=== PATIENT | male | born 1965 | race Caucasian/White ===

== ENCOUNTER 2019-12-04 11:38 | Emergency (ER) | payer MEDICAID ==
[~2019-12-04] VITALS: Ht 175.3 cm; Wt 65.0 kg
[~2019-12-04 11:38] MED LIST: HIV MEDS
[2019-12-04] MEDS ORDERED: IBUPROFEN 600MG TABLET PO STA (14:24)
[2019-12-04 14:39] VITALS: BP 126/74
[2019-12-04 15:16] LABS: CLARITY URINE CLEAR (CLEAR); COLOR URINE YELLOW (YELLOW); KETONES URINE NEGATIVE (NEGATIVE); LEUKOCYTE ESTERASE URINE NEGATIVE (NEGATIVE); NITRITE URINE NEGATIVE (NEGATIVE); OCCULT BLOOD URINE NEGATIVE (NEGATIVE); PH URINE 5.5 (4.5-8.0); PROTEIN URINE NEGATIVE (NEGATIVE); SPECIFIC GRAVITY URINE 1.007 (1.005-1.030); UROBILINOGEN URINE 0.2 E.U./dL (0.2-1.0)
== END 2019-12-04 15:31 | disposition home or self-care (01) ==
LOC: ER 11:38
DX: M54.6 Pain in thoracic spine (principal); R00.1 Bradycardia, unspecified
CPT/HCPCS: 71045; 81003; 93005; 99285

== ENCOUNTER 2022-06-01 17:32 | Emergency (ER) | payer SELFPAY ==
[~2022-06-01] VITALS: Ht 177.8 cm; Wt 90.0 kg
[2022-06-01 17:37] VITALS: BP 162/97
[2022-06-01] MEDS ORDERED: ACETAMINOPHEN 325MG TABLET PO ONE (18:30)
[2022-06-01] MEDS ORDERED: METH-653 MT (20:05)
== END 2022-06-01 20:21 | disposition home or self-care (01) ==
LOC: ER 17:32
DX: R07.89 Other chest pain (principal); S16.1XXA Strain of muscle, fascia and tendon at neck level, initial encounter; V49.40XA Driver injured in collision with unspecified motor vehicles in traffic accident, initial encounter; Y93.89 Activity, other specified; Y92.89 Other specified places as the place of occurrence of the external cause; Y99.8 Other external cause status
CPT/HCPCS: 71045; 99283